=== PATIENT | female | born 1970 | race Caucasian/White ===

== ENCOUNTER 2017-01-13 02:05 | Emergency (ER) | payer MEDICAID ==
[~2017-01-13] VITALS: Ht 152.4 cm; Wt 59.0 kg
[2017-01-13 02:10] VITALS: BP_SYST 141
[2017-01-13] MEDS ORDERED: DIPHENHYDRAMINE INJ 50 MG/ML VIAL ONE (03:01)
[2017-01-13 03:06] LABS: BASOPHILS % (AUTO) 0.3 % (0.0-2.0); EOSINOPHILS # (AUTO) 0.1 K/uL (0.0-0.4); EOSINOPHILS % (AUTO) 1.2 % (0.0-4.0); HEMATOCRIT 34.5 % (36-48); HEMOGLOBIN 12.1 g/dL (12.0-16.0); LYMPHOCYTES # (AUTO) 2.1 K/uL (1.0-5.5); LYMPHOCYTES % (AUTO) 28.5 % (20.5-51.5); MEAN CORPUSCULAR HEMOGLOBIN 33 pg (27-31); MEAN CORPUSCULAR HGB CONC 35 % (32-36); MEAN CORPUSCULAR VOLUME 94 fL (79.0-98.0); MONOCYTES # (AUTO) 0.4 K/uL (0.0-1.0); MONOCYTES % (AUTO) 4.8 % (1.7-9.3); NEUTROPHILS # (AUTO) 4.7 K/uL (1.8-7.7); NEUTROPHILS % (AUTO) 65.2 % (40.0-70.0); PLATELET COUNT (AUTO) 215 K/uL (130-430); RED BLOOD CELL COUNT(AUTO) 3.68 MIL/uL (4.2-6.2); RED CELL DISTRIBUTION WIDTH 11.6 % (9.0-15.0); WHITE BLOOD COUNT (AUTO) 7.3 K/uL (4.8-10.8)
[2017-01-13] MEDS: DIPHENHYDRAMINE INJ 50 MG/ML VIAL IVP ONE (03:13)
[2017-01-13] MEDS: chlorproMAZINE HCL 50 MG/ 2 ML AMP IVP ONE (03:13)
[2017-01-13] MEDS: NACL 0.9% 1,000 ML IV ONE ×2 (03:14→04:40)
[2017-01-13 03:21] LABS: CALCIUM 8.7 mg/dL (8.4-11.0); CREATININE 0.7 mg/dL (0.55-1.30)
[2017-01-13 03:26] LABS: TOTAL BILIRUBIN 0.2 mg/dL (0.0-1.0); TOTAL PROTEIN, SERUM 7.9 g/dL (6.4-8.3)
[2017-01-13 03:28] LABS: POTASSIUM 2.8 mmol/L (3.5-5.1)
[2017-01-13 03:34] LABS: PROTHROMBIN TIME 10.7 SECS (9.5-12.5)
[2017-01-13] MEDS: KCL 20 mEq in 100 mL (PREMIX) 100 ML IV ONE (03:38)
[2017-01-13] MEDS: POTASSIUM CHLORIDE 20 MEQ TAB.PRT.SR PO ONE (05:24)
[2017-01-13] MEDS: MECLIZINE HCL 25 MG TABLET (ANITVERT) PO ONE (05:24)
[2017-01-13 06:31] VITALS: BP_SYST 102
== END 2017-01-13 06:30 | disposition home or self-care (01) ==
LOC: SED 02:05
DX: R42 Dizziness and giddiness (principal); R11.2 Nausea with vomiting, unspecified
CPT/HCPCS: 36415; 70450; 80053; 85025; 85610; 93005; 96361; 96365; 96375; 99285; J1200; J3230; J3480; J7030; J8597